=== PATIENT | male | born 1950 | race Caucasian/White ===

== ENCOUNTER 2023-09-17 08:24 | Day surgery (SDC) | payer MEDICARE ==
[2023-09-17] MEDS ORDERED: Xylocaine-Mpf 2% 5 Ml Vial IJ ONE (08:25)
[2023-09-17] MEDS ORDERED: DIPRIVAN 200 MG/20 ML IV ONE (10:20)
--- NOTE | 2023-09-17 12:29 | XRAY ---
Indication: Bilateral L4-S1 MBB. Intraoperative fluoroscopy provided for 47 seconds. 3 digital spot image submitted for interpretation demonstrates posterior needle tips projecting over the expected left and right L4-S1 nerve roots. Correlate with interoperative findings/report. Incidental incompletely visualized bilateral mid to lower lumbar fusion hardware.
--- NOTE | 2023-09-17 12:37 | XRAY ---
47 seconds of fluoroscopy was used in surgery for a bilateral L4-S1 MBB.
[2023-09-17] MEDS ORDERED: Lactated Ringers 1,000 ML IV ONE (13:11)
== END 2023-09-17 10:51 | disposition home or self-care (01) ==
LOC: SDC-PAIN 08:24
PROVIDERS: ATTEND Psychiatry & Neurology Pain Medicine
DX: M47.816 Spondylosis without myelopathy or radiculopathy, lumbar region (principal); E11.9 Type 2 diabetes mellitus without complications
CPT/HCPCS: 64493; 64494; 72020; 77002; 82947; J2704

== ENCOUNTER 2023-10-22 07:09 | Day surgery (SDC) | payer MEDICARE ==
[2023-10-22] MEDS ORDERED: Depo-Medrol 40 MG/ML IM ONE (07:10)
[2023-10-22] MEDS ORDERED: BUPIVACAINE 0.5% VIAL IJ ONE (07:10)
[2023-10-22] MEDS ORDERED: DIPRIVAN 200 MG/20 ML IV ONE (09:13)
--- NOTE | 2023-10-22 11:01 | XRAY ---
Indication: Bilateral L4-S1 MBB. Intraoperative fluoroscopy provided for 1 minute 4 seconds. 2 digital spot image submitted for interpretation demonstrates posterior needle tips project over the expected left and right L4-S1 nerve roots. Correlate with intraoperative findings/report. Incidental incompletely visualized multilevel mid to lower lumbar fusion hardware
--- NOTE | 2023-10-22 11:03 | XRAY ---
One minute 4 seconds of fluoroscopy was used in surgery for a bilateral L4-S1 MBB.
[2023-10-22] MEDS ORDERED: Lactated Ringers 1,000 ML IV ONE (12:11)
== END 2023-10-22 09:47 | disposition home or self-care (01) ==
LOC: SDC-PAIN 07:09
PROVIDERS: ATTEND Psychiatry & Neurology Pain Medicine
DX: M47.816 Spondylosis without myelopathy or radiculopathy, lumbar region (principal); E11.9 Type 2 diabetes mellitus without complications
CPT/HCPCS: 64493; 64494; 72020; 77002; 82947; J1010; J2704